=== PATIENT | female | born 1950 | race Caucasian/White ===

== ENCOUNTER 2019-01-14 11:36 | Inpatient (IN) | payer OTHER ==
[~2019-01-14] VITALS: Ht 165.1 cm; Wt 80.0 kg
[2019-01-14] MEDS ORDERED: ACET-2247 PO (11:49)
[2019-01-14] MEDS ORDERED: IBUP-1506 PO (11:49)
[2019-01-14] MEDS ORDERED: ONDA4 PO (11:49)
[2019-01-14] MEDS ORDERED: ONDANSETRON HCL 4 MG/2 ML VIAL IVP ONE (12:15)
[2019-01-14] MEDS ORDERED: SODIUM CHLORIDE 0.9% 2,000 ML IV ONE (12:15)
[2019-01-14 13:07] LABS: EOSINOPHILS % (AUTO) 0.3 % (1.0-6.0); HEMOGLOBIN 11.6 g/dL (12.0-16.0); LYMPHOCYTES # (AUTO) 1.9 K/uL (1.0-4.8); RED BLOOD CELL COUNT(AUTO) 3.67 MIL/uL (4.00-5.20)
[2019-01-14 13:12] LABS: BASOPHILS % (AUTO) 0.2 % (0.0-2.0); HEMATOCRIT 35.5 % (36-46); LYMPHOCYTES % (AUTO) 17.1 % (22.0-44.0); MEAN CORPUSCULAR HEMOGLOBIN 31.7 pg (26.0-34.0); MEAN CORPUSCULAR HGB CONC 32.7 G/dL (31.0-37.0); MEAN CORPUSCULAR VOLUME 97 fL (80-100); MONOCYTES # (AUTO) 1.3 K/uL (0.1-1.0); MONOCYTES % (AUTO) 11.8 % (2.0-9.0); NEUTROPHILS # (AUTO) 7.8 K/uL (1.8-7.7); NEUTROPHILS % (AUTO) 70.6 % (40.0-70.0); RED CELL DISTRIBUTION WIDTH 13.2 % (11.5-14.5)
[2019-01-14 13:15] LABS: CALCIUM, TOTAL 9.3 mg/dL (8.8-10.5); CREATININE 1.08 mg/dL (0.60-1.30); POTASSIUM 3.4 mmol/L (3.5-5.1)
[2019-01-14 13:21] LABS: ALBUMIN 2.7 g/dL (3.4-5.0); BILIRUBIN,TOTAL 0.4 mg/dL (0.1-1.0); TOTAL PROTEIN, SERUM 6.9 g/dL (6.4-8.2)
[2019-01-14 13:34] LABS: LACTIC ACID 1.1 mmol/L (0.4-2.0)
[2019-01-14 13:41] LABS: PLATELET COUNT (AUTO) 229 K/uL (150-450)
[2019-01-14 15:53] LABS: APPEARANCE,URINE CLOUDY (CLEAR); BILIRUBIN,URINE NEGATIVE (NEGATIVE); GLUCOSE, URINE (UA) NEGATIVE (NEGATIVE); KETONES,URINE TRACE mg/dL (NEGATIVE); LEUKOCYTE ESTERASE ,URINE MODERATE (NEGATIVE); NITRATE,URINE POSITIVE (NEGATIVE); OCCULT BLOOD,URINE MODERATE (NEGATIVE); PH,URINE 5.5 (5.0-8.0); PROTEIN,URINE TRACE (NEGATIVE)
[2019-01-14 16:05] LABS: BACTERIA,URINE Many /HPF (None Seen); RBC,URINE 0-2 /HPF (0-2); WBC,URINE 26-50 /HPF (0-5)
[2019-01-14 16:06] LABS: MUCUS,URINE Few LPF (None Seen); SQUAMOUS EPITHELIAL CELL,UR Moderate /LPF (None Seen)
[2019-01-14] MEDS ORDERED: CefTRIAXone 1 GM/DEXTROSE 50 ML IV ONE (16:15)
[2019-01-14] MEDS ORDERED: POTASSIUM CHLORIDE 20 MEQ ER TABLET PO PRN (17:30)
[2019-01-14] MEDS ORDERED: POTASSIUM CHL 10 MEQ/WATER 50 ML IV PRN (17:30)
[2019-01-14] MEDS ORDERED: MAGNESIUM HYDROXIDE SUSPENSION 30 ML UDCUP PO PRN (17:30)
[2019-01-14 17:38] VITALS: BP 128/65
[2019-01-14] MEDS ORDERED: SODIUM CHLORIDE 0.9% 1,000 ML IV ONE (17:45)
[2019-01-14 19:19] VITALS: BP 137/60
[2019-01-14] MEDS ORDERED: PROV5 PO (19:40)
[2019-01-14] MEDS ORDERED: SULF1TAB42 PO (19:42)
[2019-01-14] MEDS ORDERED: AMLO-512 PO (19:46)
[2019-01-14] MEDS ORDERED: PANTOPRAZOLE SODIUM 40 MG DR TABLET PO SCH (20:30)
[2019-01-14] MEDS ORDERED: ONDANSETRON HCL 4 MG/2 ML VIAL IVP PRN (20:30)
[2019-01-14] MEDS ORDERED: 0.9% SODIUM CHLORIDE 10 ML SYRINGE IVP PRN (20:30)
[2019-01-14] MEDS ORDERED: OxyCODONE HCL/ACETAMINOPHEN 5-325 MG TABLET PO PRN ×2 (20:30)
[2019-01-14] MEDS ORDERED: ONDANSETRON HCL 4 MG TABLET PO PRN (20:45)
[2019-01-14] MEDS ORDERED: AmLODIPine BESYLATE 10 MG TABLET PO SCH (20:45)
[2019-01-14] MEDS ORDERED: MedroxyPROGESTERone ACET 5 MG TABLET PO SCH (20:45)
[2019-01-14] MEDS ORDERED: DOCUSATE SODIUM 100 MG CAPSULE PO SCH ×2 (21:00)
[2019-01-15] VITALS (7 sets, daily range): BP systolic 110–145; BP diastolic 56–67
[2019-01-15 03:30] LABS: C.DIFF GDH ANTIGEN, Stool Negative (Negative); C.DIFF TOXINS A&B, Stool Negative (Negative)
[2019-01-15 06:24] LABS: BASOPHILS % (AUTO) 0.5 % (0.0-2.0); EOSINOPHILS % (AUTO) 0.7 % (1.0-6.0); HEMATOCRIT 32.9 % (36-46); HEMOGLOBIN 10.8 g/dL (12.0-16.0); LYMPHOCYTES % (AUTO) 22.4 % (22.0-44.0); MEAN CORPUSCULAR HEMOGLOBIN 31.5 pg (26.0-34.0); MEAN CORPUSCULAR HGB CONC 32.8 G/dL (31.0-37.0); MEAN CORPUSCULAR VOLUME 96 fL (80-100); MONOCYTES # (AUTO) 1.2 K/uL (0.1-1.0); MONOCYTES % (AUTO) 13.6 % (2.0-9.0); NEUTROPHILS # (AUTO) 5.6 K/uL (1.8-7.7); NEUTROPHILS % (AUTO) 62.8 % (40.0-70.0); PLATELET COUNT (AUTO) 226 K/uL (150-450); RED BLOOD CELL COUNT(AUTO) 3.43 MIL/uL (4.00-5.20); RED CELL DISTRIBUTION WIDTH 12.9 % (11.5-14.5)
[2019-01-15 06:37] LABS: ANION GAP 5 mmol/L (8-16); CALCIUM, TOTAL 8.4 mg/dL (8.8-10.5); CARBON DIOXIDE 28 mmol/L (22-29); CHLORIDE 104 mmol/L (98-107); CREATININE 0.85 mg/dL (0.60-1.30); GLOMERULAR FILTR. RATE CALC > 60 mL/min (>60); GLUCOSE,RANDOM 90 mg/dL (70-110); POTASSIUM 4.1 mmol/L (3.5-5.1); SODIUM SERUM 137 mmol/L (136-145); UREA NITROGEN, BLOOD 16 mg/dL (7-18)
[2019-01-15] MEDS: HEPARIN SODIUM,PORCINE 5,000 UNITS/ML VIAL SQ SCH ×4 (07:49→23:26)
[2019-01-15] MEDS: FAMOTIDINE 20 MG TABLET PO SCH (07:49)
[2019-01-15] MEDS: ACETAMINOPHEN 325 MG TABLET PO PRN ×2 (07:51→19:42)
[2019-01-15] MEDS ORDERED: PNEUMOCOCCAL VACCINE POLYVALENT 0.5 ML VIAL [PPSV23] IM ONE (08:30)
[2019-01-15] MEDS ORDERED: CefTRIAXone 1 GM/DEXTROSE 50 ML IV SCH (16:00)
[2019-01-15] MEDS: CefTRIAXone 1 GM/DEXTROSE 50 ML IV SCH (16:06)
[2019-01-15] MEDS ORDERED: SODIUM CHLORIDE 0.9% 500 ML IV ONE (16:07)
[2019-01-16 05:06] VITALS: BP 123/66
[2019-01-16 07:56] VITALS: BP 126/59
[2019-01-16] MEDS: HEPARIN SODIUM,PORCINE 5,000 UNITS/ML VIAL SQ SCH ×2 (08:13→16:10)
[2019-01-16] MEDS: FAMOTIDINE 20 MG TABLET PO SCH (08:13)
[2019-01-16 12:04] VITALS: BP 119/60
[2019-01-16] MEDS ORDERED: CIP250 PO (14:33)
[2019-01-16 15:49] VITALS: BP 125/66
[2019-01-16] MEDS: CefTRIAXone 1 GM/DEXTROSE 50 ML IV SCH (16:09)
== END 2019-01-16 17:30 | disposition home or self-care (01) | DRG 872 ==
LOC: EMS 11:38 → 4E 16:29
PROVIDERS: ADMIT Internal Medicine; ATTEND Internal Medicine
DX: A41.9 Sepsis, unspecified organism (principal); N39.0 Urinary tract infection, site not specified; E66.9 Obesity, unspecified; Z85.72 Personal history of non-Hodgkin lymphomas; Z90.49 Acquired absence of other specified parts of digestive tract; Z68.29 Body mass index [BMI] 29.0-29.9, adult; Z79.899 Other long term (current) drug therapy
CPT/HCPCS: 74176; 83605; 84132; 87040; 87045; 87086; 87324; 87449; 93005; 96365; 96375; G0378; J0696; J1644; J2405; J7030; J7040